=== PATIENT | female | born 1945 | race Caucasian/White ===

== ENCOUNTER → 2020-06-27 08:18 | Outpatient (CLI) | payer MEDICARE, OTHER, SELFPAY ==
[2020-03-30 15:28] VITALS: BMI 24.5
--- NOTE | 2020-06-27 08:21 | US_ITS ---
STUDY: RENAL ULTRASOUND - COMPLETE REASON FOR EXAM: Female, 74 years old. RENAL INSUFFICIENCY SURGEY ON 06/28 FOR PROLAPSED B;LADDER TECHNIQUE: Ultrasound evaluation of the kidneys was performed with real-time and static valentin-scale imaging. COMPARISON: None. FINDINGS: RIGHT KIDNEY: Normal location of the right kidney, which is normal in size. The right kidney measures 10 cm x 5 cm x 5.8 cm. There is a normal cortex of the right kidney. The renal cortex measures 1.4 cm. There is no right renal mass or cyst. There are no right renal calculi. There is no right hydronephrosis. DISTAL RIGHT URETER: There is non-visualization of the distal right ureter. There is no demonstrated right ureterovesical junction calculus. There is a visualized right ureteral jet. LEFT KIDNEY: Normal location of the left kidney, which is normal in size. The left kidney measures 10 cm x 4.3 cm x 4.8 cm. There is a normal cortex of the left kidney. The renal cortex measures 1.4 cm. There is no left renal mass or cyst. There are no left renal calculi. There is no left hydronephrosis. DISTAL LEFT URETER: There is non-visualization of the distal left ureter. There is no demonstrated left ureterovesical junction calculus. There is a visualized left ureteral jet. BLADDER: The distended urinary bladder has a volume of 156 ml. There is a normal wall thickness of the distended urinary bladder. There is no demonstrated mass within the urinary bladder. There are no demonstrated bladder calculi. US/Kidney and Bladder IMPRESSION: Normal ultrasound of the kidneys and urinary bladder. Electronically Signed: Barry Copeland MD at 9:07 EST , Service support ,
== END ==
PROVIDERS: PCP Internal Medicine; Referring Provider Urology; Visit Provider Urology
DX: N28.9 Disorder of kidney and ureter, unspecified (principal)
CPT/HCPCS: 76770

== ENCOUNTER 2020-06-28 07:18 | Observation (INO) | payer MEDICARE, OTHER, SELFPAY ==
[2020-03-30 15:28] VITALS: BMI 24.5
--- NOTE | 2020-06-23 12:37 | EKG12_ITS ---
Test Reason : PRE SURGERY Blood Pressure : / mmHG Vent. Rate : 079 BPM Atrial Rate : 079 BPM P-R Int : 158 ms QRS Dur : 080 ms QT Int : 374 ms P-R-T Axes : 066 063 076 degrees QTc Int : 428 ms Normal sinus rhythm Normal ECG Confirmed by [employer] MAYER, CARLOS ([id number]), movie editor INEZ DOMINGUEZ ([id number]) on 06/27/2020 10:44:24 AM Referred By: Juliane Flowers Confirmed By:RON DUTTON MD
[2020-06-23 12:50] LABS: Hematocrit 46.5 % (37-47); Hemoglobin 14.6 g/dL (12.0-15.0); Mean Corp Hgb Conc 31.4 g/dL (32-36); Mean Corpuscular Hgb 27.1 pg (27.0-32.0); Mean Corpuscular Volume 86.3 fL (81-99); Mean Platelet Vol. 10.7 fl (6.2-12.0); Platelet Count 312 K/mm3 (150-450); RBC Distribution Width CV 13.5 % (11.6-14.6); RBC Distribution Width SD 41.6 fl (35.1-43.9); Red Blood Count 5.39 M/mm3 (4.2-5.4)
[2020-06-23 13:27] LABS: Anion Gap 7 (5-15); BUN 22 mg/dL (7-18); Calcium,Total 10.2 mg/dL (8.5-10.1); Chloride 102 mmol/L (98-107); Creatinine, Serum 1.47 mg/dL (0.55-1.02); EST Glomerular Filtration Rate 37 mL/min (>60); Est Glom Filt Rate - Afr Amer 45 mL/min (>60); Glucose 232 mg/dL (74-106); Potassium 4.3 mmol/L (3.5-5.1); Sodium Level 136 mmol/L (136-145)
[2020-06-24 13:51] LABS: Hemoglobin A1c 8.1 % (3.8-5.6)
[2020-06-28] VITALS (15 sets, daily range): BP systolic 82–150; BP diastolic 43–85; PULSE 72–100; RESP 14–18; TEMP 36.2–37.2; O2SAT 16–100; BMI 24.7
[2020-06-28] MEDS: Lactated Ringers 1,000 ML 75 ML IV (06:46)
--- NOTE | 2020-06-28 07:17 | OP.PCM_ITS ---
Problem List (1) Rectocele Status: Acute (2) Vaginal vault prolapse after hysterectomy Status: Acute Report of Operation Date of Procedure: 06/28/20 Pre-Operative Diagnosis: Rectocele, vaginal vault prolapse Post-Operative Diagnosis: Same Surgery/Procedure Performed:: Posterior repair with dermis, bilateral sacrospinous ligament fixation, cystoscopy with bilateral ureteral catheterization philatelic consultant: Marybeth Type of Anesthesia:: General Specimen's removed: none Estimated Blood Loss (mL): 25cc Fluids Replaced: 1L Description of Procedure: The patient is a 74-year-old female status post hysterectomy who presented to the office for evaluation and management of pelvic organ prolapse. She underwent pelvic examination, cystoscopy and urodynamics in the office and agreed to proceed with surgical intervention. Informed consent was obtained including a discussion of the risks of COVID-19. The patient was taken to the operating room placed on the operating room table. Anesthesia monitored the head, neck, airway, IV access and vital signs throughout the case. Once anesthesia was appropriate ministered the patient was placed into dorsal lithotomy in Trendelenburg position and was prepped and draped in usual sterile fashion. A Mendiola catheter was inserted to straight drain and was allowed to drain throughout the procedure. The posterior vaginal wall was injected with vasopressin for hydrostatic dissection and hemostatic control. A midline incision was made at the perineal body. Sharp and blunt dissection was performed on either side until the ischial spines were identified and the sacrospinous ligaments were palpable and freed from surrounding tissues. Essentially no rectovaginal fascia was able to be identified. Dissection continued to the apex of the vagina as well. The Capio device was then used to pass an Ethibond suture through the sacrospinous ligaments bilaterally. The suture was then brought through the dermis and out through the vaginal mucosa at the apex bilaterally. The dermis was then sutured to the midline at the apex using 2-0 Vicryl. It was also sutured to the remnants of the rectovaginal fascia bilaterally at the area of the white line. The perineal body was recon structed using 2-0 Vicryl and the dermis was attached just proximal to this area. The vaginal mucosa was then closed using running interlocking 2-0 Vicryl. A cystourethroscopy was then inserted through the urethra under direct visualization revealing no injury to the urinary bladder or the urethra. A 5 Turkish whistle-tip catheter was easily inserted into each ureteral orifice and extended to 20 cm bilaterally. There is no evidence of ureteral obstruction or injury. At this time the cystoscope was removed and the Mendiola catheter was replaced. The vagina was packed using estrogen vaginal cream and vaginal packing. She was awakened and taken to the recovery room in good condition. There were no complications during this procedure. Grafts/Implants Used: Dermis - Complications None - Admit VTE Documentation VTE Present on Admission: Yes VTE Mechan Device Prophylaxis: SCD's VTE Pharm Prophylaxis ordered?: Yes
[2020-06-28] MEDS: Ciprofloxacin 400 MG/200 ML BAG 200 MG IV (07:27)
[2020-06-28 07:45] LABS: Bedside Glucose 210 mg/dL (70-110)
[2020-06-28] MEDS: Vasopressin 20 UNITS/ML Vial (07:55)
[2020-06-28] MEDS: Estrogens,Conj. 1 Tube 1 DOSE (08:53)
[2020-06-28] MEDS: Lactated Ringers 1,000 ML 100 ML IV ×3 (09:03→21:48)
[2020-06-28 09:21] LABS: Bedside Glucose 199 mg/dL (70-110)
--- NOTE | 2020-06-28 09:38 | PCM.DC.URO ---
Discharge Diet: No Restrictions Discharge Activity: May Not Drive, May Shower, - - No tub bathing, no swimming, no hot tubs. No sexual activity. No strenuous activity. No lifting over 5 pounds, no vacuuming. May resume sexual activity in: 8 weeks Lifting Restrictions: 5 pounds Call your doctor if your incision/area has: Continuous Slow Oozing, Sudden Increased Bleeding, Increased Pain/ Swelling, Foul Smelling Discharge Call your doctor if you observe: Fever of 101 or Higher, Inability to urinate, Inability to have a bowel movement, Calf discomfort, Uncontrolled pain Additional Dressing/Incision Instructions:: Continue vaginal estrogen cream Allergies/Adverse Reactions: Allergies Penicillins Allergy (Mild, Verified 03/30/20 15:17) hives shellfish derived Allergy (Mild, Verified 03/30/20 15:17) hives, itching Sulfa (Sulfonamide Antibiotics) Allergy (Mild, Verified 03/30/20 15:17) unknown Medications to take at Discharge atorvastatin 20 mg tablet 20 mg PO DAILY 03/30/20 canagliflozin 300 mg tablet 300 mg PO DAILY 03/30/20 dulaglutide 1.5 mg/0.5 mL subcutaneous pen injector 1.5 mg SC FR 03/30/20 duloxetine 60 mg capsule,delayed release 60 mg PO DAILY 03/30/20 olmesartan 40 mg tablet 40 mg PO DAILY 03/30/20 omeprazole 40 mg capsule,delayed release 40 mg PO DAILY 03/30/20 Mybetriq 50 mg PO DAILY 06/23/20 Docusate Sodium [Colace] 100 mg PO BID capsule 06/28/20 Hydrocodone Bitart/Apap 5-325 [[place] 5/325] 2 tablet PO Q8H PRN PRN 7 Days #20 tablet 06/28/20 The following prescriptions were given: Hydrocodone Bitart/Apap 5-325 [[place] 5/325] 2 tablet PO Q8H PRN PRN 7 Days #20 tablet PRN Reason: Pain Score 1-5 Transmission Status: Sent to [facility] Primary Care Physician: Jaime Phillips Jr., MD [Primary Care Provider] - Test Results: Test results from this visit will be discussed in further detail at your follow-up appointment, if applicable. Please Follow Up With: Juliane Flowers MD When: call office for appointment Proposed Discharge Date: 06/29/20
[2020-06-28 11:55] LABS: Bedside Glucose 214 mg/dL (70-110)
[2020-06-28] MEDS: Insulin Lispro 100 UNIT/ML INSULN.PEN SC ×3 (12:13→21:44)
[2020-06-28] MEDS: Empagliflozin 25 MG Tablet PO (12:58)
[2020-06-28] MEDS: Docusate Sodium 100 MG Capsule PO ×2 (12:58→21:44)
[2020-06-28] MEDS: DULoxetine Hcl 60 MG Capsule PO (12:58)
[2020-06-28 17:35] LABS: Bedside Glucose 334 mg/dL (70-110)
--- NOTE | 2020-06-28 19:46 | NURSING ---
reviewed and agree with documentation by Estela LIN
[2020-06-28] MEDS: Atorvastatin Calcium 20 MG Tablet PO (21:44)
[2020-06-28 21:50] LABS: Bedside Glucose 336 mg/dL (70-110)
[2020-06-28] MEDS: HYDROcodone Bitartrate/Apap 5/325 Tablet PO (23:14)
[2020-06-29 02:50] VITALS: BP 126/59; PULSE 98; RESP 18; TEMP 36.9; O2SAT 97
[2020-06-29] MEDS: Insulin Lispro 100 UNIT/ML INSULN.PEN SC (06:31)
[2020-06-29] MEDS: Lactated Ringers 1,000 ML 100 ML IV (06:34)
[2020-06-29 06:40] LABS: Bedside Glucose 292 mg/dL (70-110)
[2020-06-29 08:00] VITALS: BP 133/52; PULSE 91; RESP 18; TEMP 36.6; O2SAT 97
--- NOTE | 2020-06-29 08:15 | PCM.PN.BLA ---
Progress Note Doing well. Had some mild pain in tailbone that resolved with sitting in chair. No nausea or vomiting. Vitals are good. Abdomen soft. SCD's in place. Urine clear. Peters and packing removed without an issue. A/P Post op day #1 pelvic reconstruction trial of void home later today with or without peters
[2020-06-29] MEDS: Docusate Sodium 100 MG Capsule PO (09:19)
[2020-06-29] MEDS: Pantoprazole Sodium 40 MG Tablet PO (09:20)
[2020-06-29] MEDS: Empagliflozin 25 MG Tablet PO (09:20)
[2020-06-29] MEDS: Losartan Potassium 100 MG Tablet PO (09:20)
[2020-06-29] MEDS: Enoxaparin 40 MG/0.4 ML Syringe SC (09:20)
[2020-06-29] MEDS: DULoxetine Hcl 60 MG Capsule PO (09:20)
--- NOTE | 2020-06-29 10:02 | NURSING ---
RNCM TYLER Note: This life insurance underwriter went to patient bedside. TYLER form explained and reviewed with patient in regards to current treatment this hospitalization. Aware outpatient billing is determined by her insurance policy and continual review is conducted to determine any changes in condition that may warrant inpatient stay. Patient states understanding and denies any questions with TYLER form. TYLER form signed and placed in patient hard chart, patient given a copy. VOLODYMYR Cortes
--- NOTE | 2020-06-29 10:09 | NURSING ---
RN CM Assessment Introduced role of RN CM to patient.? Patient is alert, oriented and able?to participate in RN CM Assessment. ?Care providers, pharmacy, and demographics verified. Admit Dx: Rectocele, Vaginal vault prolapse Re-Admit: No Barriers/Issues: None PCP: Jaime Phillips Jr Specialists: None Preferred [facility]acy: [facility] Insurance: [facility] A/B, MMO Rx Benefit:?Yes ?LNOK: Ifeanyi Taylor LW/HPOA: None, denies any offered advanced directive information or completion on this hospitalization. 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 Living Arrangements:? Lives with her in a 2SH, Bedroom on 2nd fl. No steps to enter home. ADL?s: Independent with ambulation and ADLs Transportation: Both patient and drive. will pick patient up upon DC DME: None HHC: None SNF: None Goal: Home and does not think will have any needs. Denies any issues, questions, or concerns with DC planning at this time. Aware RNCM will remain available for any arising needs. DC PLAN: Home with no anticipated needs identified at this time . VOLODYMYR Cortes
--- NOTE | 2020-06-29 11:44 | PHA.DC.MC ---
Pharmacy Service has performed discharge medication reconciliation and counseling for this patient. 1. DOCUSATE 100MG PO BID 2. NORCO 5/325MG 2T PO Q8H PRN PAIN The patient's discharge medication list was reviewed for discrepancies and discrepancies were resolved. Home Medications atorvastatin 20 mg tablet 20 mg PO DAILY 03/30/20 canagliflozin 300 mg tablet 300 mg PO DAILY 03/30/20 dulaglutide 1.5 mg/0.5 mL subcutaneous pen injector 1.5 mg SC FR 03/30/20 duloxetine 60 mg capsule,delayed release 60 mg PO DAILY 03/30/20 olmesartan 40 mg tablet 40 mg PO DAILY 03/30/20 omeprazole 40 mg capsule,delayed release 40 mg PO DAILY 03/30/20 Mybetriq 50 mg PO DAILY 06/23/20 Docusate Sodium [Colace] 100 mg PO BID cap 06/28/20 Hydrocodone Bitart/Apap 5-325 [[place] 5/325] 2 tab PO Q8H PRN PRN 7 Days #20 tab 06/28/20 The patient was counseled on the following discharge medications and changes in medications for homegoing were reviewed. The Reason for Use, instructions for use, and potential side effects were reviewed for all new medications. The patient's questions regarding all of their medications were answered. The patient was able to verbally demonstrate an understanding of their discharge medications.
[2020-06-29 11:55] VITALS: BP 123/63; PULSE 79; RESP 16; TEMP 36.7; O2SAT 98
--- NOTE | 2020-06-29 20:17 | NURSING ---
reviewed and agree with documentation by RILEY Stoner
== END 2020-06-29 12:22 | disposition home or self-care (01) ==
LOC: SDC 07:56 → MS3 07:56
PROVIDERS: Anesthesiology; Admitting Provider Urology; PCP Internal Medicine; Referring Provider Urology; Visit Provider Urology
PROC: (CPT 57260; principal; 2020-06-28 07:15)
DX: N81.6 Rectocele (principal); Z20.828 Contact with and (suspected) exposure to other viral communicable diseases; E11.9 Type 2 diabetes mellitus without complications; E78.00 Pure hypercholesterolemia, unspecified; Z23 Encounter for immunization; K21.9 Gastro-esophageal reflux disease without esophagitis; F41.9 Anxiety disorder, unspecified; F32.9 Major depressive disorder, single episode, unspecified; Z79.899 Other long term (current) drug therapy; I10 Essential (primary) hypertension
CPT/HCPCS: 00942; 57250; 57282; 36415; 80048; 82962; 83036; 85027; 87426; 93005; 96360; 96361; 96372; 99218; 99251; C9803; J7120; 90686; C1758; G0378; G0379; G0463; J0744; J2405